=== PATIENT | female | born 1960 | race Caucasian/White ===

== ENCOUNTER 2021-08-25 05:30 | Outpatient (CLI) | payer BC ==
[~2021-08-25] VITALS: Ht 170.2 cm; Wt 81.8 kg
[2021-08-28] MEDS ORDERED: ESCI5TAB PO (09:36)
== END 2021-08-28 09:51 | disposition home or self-care (01) ==
LOC: PREOP 05:30
PROVIDERS: ATTEND Podiatrist Foot & Ankle Surgery
DX: Z01.818 Encounter for other preprocedural examination (principal)

== ENCOUNTER 2021-09-01 11:27 | Day surgery (SDC) | payer BC ==
[~2021-09-01] VITALS: Ht 170.2 cm; Wt 81.8 kg
[2021-09-01] VITALS (9 sets, daily range): BP systolic 137–161; BP diastolic 74–87
[~2021-09-01 11:27] MED LIST: ESCI5TAB PO
[2021-09-01] MEDS ORDERED: ceFAZolin INJECTION 1,000 MG ONE (11:52)
[2021-09-01] MEDS: LACTATED RINGERS 1,000 ML IV PRN ×2 (12:00→14:15)
[2021-09-01] MEDS ORDERED: ceFAZolin INJECTION 1,000 MG VIAL IV ONE (12:00)
[2021-09-01] MEDS ORDERED: BUPIVACAINE 0.5% 30 ML (SENSORCAINE) VIAL ONE (12:15)
[2021-09-01] MEDS ORDERED: LIDOCAINE 1% INJ 20 ML VIAL ONE (12:15)
--- NOTE | 2021-09-01 12:45 | Progress Note-Pre Operative ---
Pre-Operative Progress Note H&P Reviewed The H&P was reviewed, patient examined and no changes noted. Date Seen by Provider: Sep 01, 2021 Time Seen by Provider: 12:44 Date H&P Reviewed: Sep 01, 2021 Time H&P Reviewed: 12:44 Pre-Operative Diagnosis: Hallux Valgus, 2nd Hammertoe, Hypertrophic 2nd metatarsal, all right ELINOR SHELL DPM Sep 01, 2021 12:45
[2021-09-01] MEDS ORDERED: fentaNYL INJ 100 MCG/2 ML AMP ONE (12:48)
[2021-09-01] MEDS ORDERED: MIDAZOLAM 2 MG/2 ML (VERSED) VIAL ONE (12:48)
[2021-09-01] MEDS ORDERED: LIDOCAINE PF 2% 5 ML (XYLOCAINE) VIAL ONE (14:18)
[2021-09-01] MEDS ORDERED: ONDANSETRON 4 MG/2 ML (SDV) Z0FRAN ONE (14:18)
[2021-09-01] MEDS ORDERED: PROPOFOL INJECTION 50 ML IV ONE (14:18)
[2021-09-01] MEDS ORDERED: proPOfol 200 MG/20 ML (DIPRIVAN) VIAL IV ONE (14:18)
--- NOTE | 2021-09-01 14:54 | Progress Note-Post Operative ---
Post-Operative Progess Note Surgeon (s)/Locomotive Repairer Diesel (s) Surgeon ELINOR SHELL DPM Locomotive Repairer Diesel: none Pre-Operative Diagnosis Hallux Valgus, 2nd Hammertoe, Hypertrophic 2nd metatarsal, all right Post-Operative Diagnosis same Procedure & Operative Findings Date of Procedure 09/01/21 Procedure Performed/Findings Hernan bunionectomy, right 2nd metatarsal osteotomy, right Reduction of right 2nd hammertoe Anesthesia Type General Estimated Blood Loss Estimated blood loss (mL): Minimal Specimens/Packing Specimens Removed bone of right 1st metatarsal head ELINOR SHELL DPM Sep 01, 2021 14:54
[2021-09-01] MEDS ORDERED: CEPH500C PO (14:56)
[2021-09-01] MEDS ORDERED: HYDROcodone/APAP 5 MG/325 MG (LORTAB) TAB PO PRN (15:00)
[2021-09-01] MEDS ORDERED: fentaNYL INJ 100 MCG/2 ML AMP IVP ONE (15:00)
[2021-09-01] MEDS ORDERED: morphine INJ 10 MG/ML 1ML (SYR OR VIAL) IVP ONE (15:00)
[2021-09-01] MEDS ORDERED: LACTATED RINGERS 1,000 ML IV SCH (15:00)
[2021-09-01] MEDS ORDERED: ONDANSETRON 4 MG/2 ML (SDV) Z0FRAN IVP PRN (15:00)
--- NOTE | 2021-09-01 15:00 | Anesthesia-General Post-Op ---
General Patient Condition Mental Status/LOC: Same as Preop Cardiovascular: Satisfactory Nausea/Vomiting: Absent Respiratory: Satisfactory Pain: Controlled Complications: Absent Post Op Complications Complications None Follow Up Care/Instructions Patient Instructions None needed. Anesthesia/Patient Condition Patient Condition Patient is doing well, no complaints, stable vital signs, no apparent adverse anesthesia problems. No complications reported per nursing. JAMEEL LEMA CRNA Sep 01, 2021 14:59
--- NOTE | 2021-09-01 16:06 | Diagnostic Imaging Report ---
INDICATION: Postop right foot. TIME OF EXAM: 3:05 PM Two views of the right foot demonstrate a fixation pin extending through the 2nd toe. There has been an osteotomy with a cerclage wire involving the proximal phalanx of the great toe. Alignment is normal. There is a suture anchor within the distal 2nd metatarsal. No acute fracture is seen. IMPRESSION: Postop changes, as described. Dictated by: Dictated on workstation # [id number]
--- NOTE | 2021-09-01 16:09 | Physical Therapy Ortho Eval ---
PT Orthopedic Evaluation Type of Surgery Prior Level of Function Current Living Status: Spouse Locomotion (Upon Admit): Independent Established Durable Medical Eq: Crutches Subjective Subjective Patient lying supine in bed upon PT arrival, agreeable to treatment. After standing, notes, "I think she's still out of it, I can tell by the way shes talking." Motor Control Motor Control: Motor Control WNL ROM ROM: WFL, except focal deficit Strength Strength: WFL Transfer SCALE: Activities may be completed with or without assistive devices. 2-Bdqpboycnn-tqmxwly completes the activity by him/herself with no assistance from a helper. 5-Set-up or Clean-up Assistance-helper sets up or cleans up; patient completes activity. Biggs assists only prior to or following the activity. 4-Supervision or Touching Assistance-helper provides verbal cues and/or to uching/steadying and/or contact guard assistance as patient completes activity. Assistance may be provided throughout the activity or intermittently. 3-Partial/Moderate Assistance-helper does LESS THAN HALF the effort. Biggs lifts, holds or supports trunk or limbs, but provides less than half the effort. 2-Substantial/Maximal Assistance-helper does MORE THAN HALF the effort. Biggs lifts or holds trunk or limbs and provides more than half the effort. 7-Qjjcwcztu-rkqycp does ALL the effort. Patient does none of the effort to complete the activity. Or, the assistance of 2 or more helpers is required for the patient to complete the activity. If activity was not attempted, code reason: 7-Patient Refused. 9-Not Applicable-not attempted and the patient did not perform the activity before the current illness, exacerbation or injury. 10-Not Attempted due to Environmental Limitations-(lack of equipment, weather restraints, etc.). 88-Not Attempted due to Medical Conditions or Safety Concerns. Transfers (B, C, W/C) (QC): 3 Gait Gait Assistive Device: Crutches Right Lower Extremity: Right Weight Bearing Status RLE: Non Weight Bearing Left Lower Extremity: Left Weight Bearing Status LLE: Full Weight Bearing Gait (QC): 3 Distance (QC): 1=up to 49 ft Distance: 40 Gait Level of Assist: 3 Summary/Comments Up and down 1 step x 2 with crutches and mod A Treatment Rendered Treatment: Gait Train, Step Train Assessment/Goals Goal Time Frame: 1 Visit Safe Ambulation: No Patient unsteady on feet. After standing for a few seconds begins to ambulate and is unable to safely control crutches. Patient requires mod A for maintaining balance. Patient ascends/descends 1 step x 2 with mod A and crutches. Patients reports they have a [address] and feels comfortable helping his into the house with their 2 steps. Plan Treatment Plan: Discharge PT/Family Agrees to Plan: Yes Time Time In: 1547 Time Out: 1405 Total Billed Treatment Time: 18 Billed Treatment Time Visit, CHRISTY Jules PT Sep 01, 2021 16:08
--- NOTE | 2021-09-02 01:07 | OPERATIVE REPORT ---
DATE OF SERVICE: 09/01/2021 SURGEON: Alexandria Shell DPM. PREOPERATIVE DIAGNOSES: 1. Hallux abductovalgus, right. 2. Hallux rigidus, right. 3. Hypertrophic right second metatarsal. 4. Hammertoe, right second digit. POSTOPERATIVE DIAGNOSES: 1. Hallux abductovalgus, right. 2. Hallux rigidus, right. 3. Hypertrophic right second metatarsal. 4. Hammertoe, right second digit. PROCEDURES PERFORMED: 1. Modified Hernan bunionectomy, right foot. 2. Second metatarsal osteotomy, right foot. 3. Reduction of hammertoe, right second toe. WOUND CLASS: Clean. ANESTHESIA: General. HEMOSTASIS: Pneumatic thigh tourniquet at 250 mmHg. INDICATIONS: This 60-year-old female presents complaining of a painful right foot. Conservative therapy is met with unsatisfactory results and the patient is agreeable to surgical intervention after risks and complications were discussed at length. No guarantees were extended to the patient and she is willing to proceed. DESCRIPTION OF PROCEDURE: The patient was brought back to the operating table, placed in secure supine position. General anesthetic was then induced. Appropriate timeout was performed. A pneumatic thigh tourniquet was placed on the right lower extremity over several layers of padding. The right foot was anesthetized utilizing 10 mL of 1:1 mixture of 1% Xylocaine, 0.5% Marcaine injected in a Askew block as well as a local infusion to the second ray of the right foot. It was then decided after we initially started the procedure to have a more complete block due to we like to have a hospital receiving clerk sedation, so right after the procedure began additional 15 mL of 0.5% Marcaine was injected in the same location with a Askew block as well as local infusion to the second metatarsal and toe. The right foot was prepped and draped in normal sterile manner. The right foot was then elevated, allowed to exsanguinate after which the tourniquet was inflated to 250 mmHg. Attention was then directed to the dorsal aspect of the right first metatarsophalangeal joint where a 6 cm longitudinal linear incision was created. The incision was deepened in the same plane with great care to identify and retract all vital neurovascular structures. Only necessary blood vessels were cauterized as encountered. The incision was deepened down to the capsule where a longitudinal capsulotomy was performed medial to the extensor hallucis longus tendon. The capsular tissue was reflected medial laterally and some joint mice were identified dorsal aspect of the joint. These were sent for gross and microscopic evaluation. Utilizing a power sagittal saw, the dorsal, medial, and lateral eminence to the first metatarsal head was removed and sent for gross and microscopic evaluation. The dorsal, medial, and lateral eminence to the base of the proximal phalanx was also reduced with a rongeur and followed by power bur. A power bur was also utilized to create more smooth dorsal, medial, lateral aspect of the first metatarsal head. Next, joint inspection was found to have a full thickness degeneration to the dorsal lateral aspect of the right first metatarsal head approximately less than a centimeter in diameter. This area was fenestrated utilizing a 1.5 mm drill. The wound was flushed with copious amounts of normal saline. Attention was then directed to the first intermetatarsal space where a lateral release was performed. The conjoint tendon of the adductor hallucis was released as well as a lateral capsulorrhaphy. Next, attention was then directed to the proximal phalanx of the right hallux where subperiosteal dissection was carried out. Next, an Hernan type osteotomy was performed with a power sagittal saw, creating a wedge of bone, which was removed with the base medial and lateral cortices of the proximal phalanx was held intact. Once the wedge of bone was removed, the gap was closed, reducing the lateral angulation of the hallux. Next, a ems helicopter pilot hole was created to the dorsal medial aspect of the osteotomy on both the proximal and distal aspects allowing for a 28-gauge monofilament wire to pass through these ems helicopter pilot holes securing the osteotomy in a closed position. Excellent bony apposition and fixation was appreciated at this time. The wound was flushed with copious amounts of normal saline throughout the procedure and closure was then performed in layers. Deep closure was performed with 3-0 Vicryl, superficial with 4-0 Vicryl, skin closure with 4-0 Prolene in a horizontal mattress type stitch. Attention was then directed to the dorsal aspect of the right second ray where a 4 cm longitudinal linear incision was created from the surgical neck of the second metatarsal to the distal interphalangeal joint area of the toe. The incision was deepened in the same plane with great care to retract all vital neurovascular structures. Only necessary blood vessels were cauterized as encountered. The incision was deepened down to the extensor tendon overlying the proximal phalanx where a Z slide lengthening was performed. The extensor tendon was reflected proximally and the extensor knight overlying the metatarsophalangeal joint was released. Next, a dorsal capsulorrhaphy was performed to the metatarsophalangeal joint, after which the medial and lateral collateral ligaments were released. This allowed for the proximal phalanx to come down into more rectus alignment. Next, attention was then directed to the head of the second metatarsal where a Momo type osteotomy was performed. The sagittal saw was utilized to create the osteotomy in the same plane as what would be the weightbearing surface for the foot. The capital fragment was allowed to translocate proximally and was fixated in its corrected or more proximal position utilizing a 12 mm 2.0 snap-off screw driven from dorsal to plantar across the osteotomy. Excellent bony apposition and fixation was appreciated at this time. The excess bone to the dorsal aspect of the second metatarsal was reduced with a rongeur followed by a hand rasp. The wound was flushed with copious amounts of normal saline. Attention was then directed to the proximal interphalangeal joint of the second toe where medial and lateral collateral ligaments were released. The head of the proximal phalanx was fashioned into a peg with a power sagittal saw and power bur and a hole was created to the base of the middle phalanx with a power bur. Next, the digit was placed into rectus alignment after which a 0.054 K-wire was driven down the toe holding it in its corrected position. The K-wire was cut approximately 1.5 cm from the end of the toe and a protective ball placed over the wire. Excellent bony apposition was appreciated at the proximal interphalangeal joint arthrodesis site. The wound was flushed with copious amounts of normal saline throughout the procedure and closure was performed in layers. Deep closure was performed with 3-0 Vicryl, superficial with 4-0 Vicryl, skin closure with 4-0 Prolene in a horizontal mattress type stitch. Postoperative injection consisted of 10 mg of dexamethasone into the right first metatarsophalangeal joint as well as into the first intermetatarsal space. Postoperative dressing consisted of Betadine soaked Adaptic, sterile 4 x 4, sterile Kerlix all secured with a Coban wrap. The patient tolerated the anesthesia and procedure well and was transported from the operating room to the recovery room with vital signs stable and vascular status intact to all digits of the right foot. The patient is to be nonweightbearing on the right lower extremity with heel contact for balance and transfers only. We will see the patient back in the office in 10 days' period of time or sooner if needed. Job ID: [id number] DocumentID: [id number] Dictated Date: 09/01/2021 15:06:21 House Steward/Stewardess Date: 09/02/2021 01:06:46 Dictated By: ALEXANDRIA SHELL DPM
== END 2021-09-01 16:44 | disposition home or self-care (01) ==
LOC: SDC 11:27
PROVIDERS: ATTEND Podiatrist Foot & Ankle Surgery
DX: M20.11 Hallux valgus (acquired), right foot (principal); M20.21 Hallux rigidus, right foot; M20.41 Other hammer toe(s) (acquired), right foot; M89.371 Hypertrophy of bone, right ankle and foot
CPT/HCPCS: 28285; 28299; 73620; 87081; 97162; C1713

== ENCOUNTER 2022-06-26 12:56 | Emergency (ER) | payer BC ==
[~2022-06-26] VITALS: Ht 170.2 cm; Wt 81.4 kg
[~2022-06-26 12:56] MED LIST changes: +CEPH500C PO
--- NOTE | 2022-06-26 13:00 | ED Chest Pain ---
General Chief Complaint: Chest Pain Stated Complaint: CHEST PAIN History of Present Illness Date Seen by Provider: Jun 26, 2022 Time Seen by Provider: 12:59 Initial Comments 61-year-old female with no significant PMH, is here with complaints of retrost ernal chest pain which began in the morning, single episode, lasting for 15 minutes and then resolving. Patient had a similar episode about 8 weeks ago. Patient does not have any cardiac risk factors or history. She is a non-smoker. Patient states that sometimes she has heartburn, but it is not a daily occurrence. No significant family history of cardiac disease. Denies fever and chills, shortness of breath, cough, abdominal pain, palpitations. No history of thyroid dysfunction. Allergies and Home Medications Allergies Coded Allergies: No Known Drug Allergies (Unverified , 08/28/21) Patient Home Medication List Home Medication List Reviewed: Yes Cephalexin (Cephalexin) 500 Mg Capsule, 1 CAP PO TID Prescribed by: ELINOR SHELL on 09/01/21 5856 Escitalopram Oxalate (Lexapro) 5 Mg Tablet, 5 MG PO DAILY, (Reported) Entered as Reported by: KHADIJAH JONES on 08/28/21 0936 Review of Systems Review of Systems Constitutional: no symptoms reported EENTM: No Symptoms Reported Respiratory: No Symptoms Reported Cardiovascular: Chest Pain Gastrointestinal: No Symptoms Reported Genitourinary: No Symptoms Reported Musculoskeletal: no symptoms reported Skin: no symptoms reported Psychiatric/Neurological: No Symptoms Reported Endocrine: No Symptoms Reported Hematologic/Lymphatic: No Symptoms Reported Past Gtabtnv-Cokekh-Ldlbku Hx Immunizations Up To Date First/Initial COVID19 Vaccinat: 11/2020 Second COVID19 Vaccination Soham: 12/2020 Seasonal Allergies Seasonal Allergies: Yes Past Medical History Surgeries: Yes (RIGHT CTR) Appendectomy, Hysterectomy, Tonsillectomy Respiratory: No Cardiac: No Neurological: No Female Reproductive Disorders: Endometriosis, 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 oz. kg; 28.23 BMI Method: General Appearance: No Apparent Distress, WD/WN HEENT: PERRL/EOMI Neck: Full Range of Motion Respiratory: Chest Non Tender, Lungs Clear, Normal Breath Sounds Cardiovascular: Regular Rate, Rhythm, No Edema, No Murmur Gastrointestinal: Non Tender, Soft Extremity: Normal Range of Motion Neurologic/Psychiatric: Alert, Oriented x3, No Motor/Sensory Deficits Skin: Normal Color Progress/Results/Core Measures Results/Orders Lab Results Laboratory Tests Test 06/26/22 12:56 06/26/22 13:09 Range/Units Urine Color YELLOW Urine Clarity CLEAR Urine pH 5.5 5-9 Urine Specific [place] 1.010 L 1.016-1.022 Urine Protein NEGATIVE NEGATIVE Urine Glucose (UA) NEGATIVE NEGATIVE Urine Ketones NEGATIVE NEGATIVE Urine Nitrite NEGATIVE NEGATIVE Urine Bilirubin NEGATIVE NEGATIVE Urine Urobilinogen 0.2 < = 1.0 MG/DL Urine Leukocyte Esterase NEGATIVE NEGATIVE Urine RBC (Auto) NEGATIVE NEGATIVE Urine RBC NONE /HPF Urine WBC 0-2 /HPF Urine Squamous Epithelial Cells 0-2 /HPF Urine Crystals NONE /LPF Urine Bacteria TRACE /HPF Urine Casts NONE /LPF Urine Mucus NEGATIVE /LPF Urine Culture Indicated NO Urine Opiates Screen NEGATIVE NEGATIVE Urine Oxycodone Screen NEGATIVE NEGATIVE Urine Methadone Screen NEGATIVE NEGATIVE Urine Propoxyphene Screen NEGATIVE NEGATIVE Urine Barbiturates Screen NEGATIVE NEGATIVE Ur Tricyclic Antidepressants Screen NEGATIVE NEGATIVE Urine Phencyclidine Screen NEGATIVE NEGATIVE Urine Amphetamines Screen NEGATIVE NEGATIVE Urine Methamphetamines Screen NEGATIVE NEGATIVE Urine Benzodiazepines Screen NEGATIVE NEGATIVE Urine Cocaine Screen NEGATIVE NEGATIVE Urine Cannabinoids Screen NEGATIVE NEGATIVE White Blood Count 6.6 4.3-11.0 10^3/uL Red Blood Count 4.61 3.80-5.11 10^6/uL Hemoglobin 14.1 11.5-16.0 g/dL Hematocrit 42 35-52 % Mean Corpuscular Volume 91 80-99 fL Mean Corpuscular Hemoglobin 31 25-34 pg Mean Corpuscular Hemoglobin Concent 34 32-36 g/dL Red Cell Distribution Width 13.2 10.0-14.5 % Platelet Count 281 130-400 10^3/uL Mean Platelet Volume 9.0 9.0-12.2 fL Immature Granulocyte % (Auto) 0 % Neutrophils (%) (Auto) 67 42-75 % Lymphocytes (%) (Auto) 23 12-44 % Monocytes (%) (Auto) 7 0-12 % Eosinophils (%) (Auto) 2 0-10 % Basophils (%) (Auto) 1 0-10 % Neutrophils # (Auto) 4.4 1.8-7.8 10^3/uL Lymphocytes # (Auto) 1.5 1.0-4.0 10^3/uL Monocytes # (Auto) 0.5 0.0-1.0 10^3/uL Eosinophils # (Auto) 0.1 0.0-0.3 10^3/uL Basophils # (Auto) 0.0 0.0-0.1 10^3/uL Immature Granulocyte # (Auto) 0.0 0.0-0.1 10^3/uL Prothrombin Time 13.0 12.2-14.7 SEC INR Comment 0.9 0.8-1.4 Activated Partial Thromboplast Time 32 24-35 SEC Sodium Level 141 135-145 MMOL/L Potassium Level 4.2 3.6-5.0 MMOL/L Chloride Level 104 98-107 MMOL/L Carbon Dioxide Level 26 21-32 MMOL/L Anion Gap 11 5-14 MMOL/L Blood Urea Nitrogen 16 7-18 MG/DL Creatinine 0.75 0.60-1.30 MG/DL Estimat Glomerular Filtration Rate 91 BUN/Creatinine Ratio 21 Glucose Level 103 70-105 MG/DL Calcium Level 9.4 8.5-10.1 MG/DL Corrected Calcium 9.2 8.5-10.1 MG/DL Magnesium Level 2.1 1.6-2.4 MG/DL Total Bilirubin 0.3 0.1-1.0 MG/DL Aspartate Amino Transf (AST/SGOT) 19 5-34 U/L Alanine Aminotransferase (ALT/SGPT) 16 0-55 U/L Alkaline Phosphatase 128 40-136 U/L Troponin I < 0.30 <0.30 NG/ML Total Protein 7.2 6.4-8.2 GM/DL Albumin 4.2 3.2-4.5 GM/DL My Orders Orders - CASSI ISLAS MD Continuous Ekg Monitoring (06/26/22 13:00) Ekg Tracing (06/26/22 13:00) Cbc With Automated Diff (06/26/22 13:13) Magnesium (06/26/22 13:13) Chest 1 View Ap/Pa Only (06/26/22 13:13) Comprehensive Metabolic Panel (06/26/22 13:13) Protime With Inr (06/26/22 13:13) Partial Thromboplastin Time (06/26/22 13:13) Aspirin Chewable Tablet (Baby Aspirin Ch (06/26/22 13:15) Ed Iv/Invasive Line Start (06/26/22 13:13) Troponin I Fs (06/26/22 13:13) Drug Screen Stat (Urine) (06/26/22 13:14) Ua Culture If Indicated (06/26/22 13:14) Famotidine Injection (Pepcid Injection) (06/26/22 13:14) Medications Given in ED Current Medications Medications Dose Ordered Sig/Rory Route Start Time Stop Time Status Last Admin Dose Admin Aspirin 324 mg ONCE ONCE PO 06/26/22 13:15 06/26/22 13:16 DC 06/26/22 13:19 324 MG Progress Progress Note : Progress Note 1. ACS RULE OUT: ACUTE GERD: - CXR: No acute findings - CBC/ CMP: normal - UA/ UDS: negative - Troponin and EKG: non-ischemic - ASA 324mg STAT - Pepcid 20mg iv STAT - Advised Pepcid and Maalox for indigestion / acid-reflux - Follow up with PCP within 3 to 5 days, may benefit from out-patient stress testing -The patient was seen in the ED, and treated appropriately to presentation at a specific point in time. Patient is informed that there is a possibility that disease and illness can evolve and change in acuity rapidly or slowly after patient is discharged from the ER. Precautionary advice given to the patient for immediate return to ER if symptoms worsen or do not resolve, and to seek emergency care sooner rather than later. Pt also advised on the importance of PCP follow up and compliance with management and follow up plan with PCP and/or specialist, as this is part of the management plan. Pt verbally expressed understanding. Diagnostic Imaging Diagonstic Imaging: Xray Plain Films/CT/US/NM/MRI: chest Comments [facility]. [place], [place] NAME: CARLINE [facility]IEE [facility] REC#: [id number] PT STATUS: REG ER : 1960 PHYSICIAN: CASSI ISLAS MD ADMIT DATE: 06/26/22/ER FS Draft Date of Exam:06/26/22 CHEST 1 VIEW AP/PA ONLY EXAMINATION: Chest radiograph, portable AP view. DATE: 06/26/2022 1:21 PM. INDICATION: 61-year-old female, chest pain. COMPARISON: None. FINDINGS: Heart size and mediastinal contours are unremarkable. There is no identified pneumothorax. There is no large pleural effusion. There is no identified focal airspace consolidation. IMPRESSION: No identified acute cardiopulmonary abnormality. Dictated on workstation # [id number] Dict: 06/26/22 1333 Trans: 06/26/22 1336 [id number] Interpreted by: JIMMY MUÑIZ MD Electronically signed by: Departure Impression Primary Impression: GERD (gastroesophageal reflux disease) Qualified Codes: K21.9 - Gastro-esophageal reflux disease without esophagitis Additional Impression: Ruled out for myocardial infarction Disposition: HOME, SELF-CARE Condition: Stable Departure-Patient Inst. Referrals: KIMBERLY MORLEY APRN (PCP) Primary Care Physician [facility] (Family) Primary Care Physician Patient Instructions: Acid Reflux and Gastroesophageal Reflux Disease in Adults Add. Discharge Instructions: - Advised Pepcid and Maalox for indigestion / acid-reflux - Follow up with PCP within 3 to 5 days, may benefit from out-patient stress testing All discharge instructions reviewed with patient and/or family. Voiced understanding. CASSI ISLAS MD Jun 26, 2022 13:00
[2022-06-26] MEDS ORDERED: FAMOTIDINE 20MG/2ML IV (PEPCID) IV STA (13:14)
[2022-06-26] MEDS ORDERED: ASPIRIN 81 MG CHEW (CHILDREN'S ASA) PO ONE (13:15)
[2022-06-26 13:22] LABS: BILIRUBIN,URINE NEGATIVE (NEGATIVE); CLARITY,URINE CLEAR; COLOR,URINE YELLOW; GLUCOSE, URINE (UA) NEGATIVE (NEGATIVE); KETONES,URINE NEGATIVE (NEGATIVE); LEUKOCYTE ESTERASE ,URINE NEGATIVE (NEGATIVE); NITRITE,URINE NEGATIVE (NEGATIVE); PH,URINE 5.5 (5-9); PROTEIN,URINE NEGATIVE (NEGATIVE)
[2022-06-26 13:28] LABS: BASOPHILS % (AUTO) 1 % (0-10); EOSINOPHILS # (AUTO) 0.1 10^3/uL (0.0-0.3); EOSINOPHILS % (AUTO) 2 % (0-10); HEMATOCRIT 42 % (35-52); HEMOGLOBIN 14.1 g/dL (11.5-16.0); LYMPHOCYTES # (AUTO) 1.5 10^3/uL (1.0-4.0); LYMPHOCYTES % (AUTO) 23 % (12-44); MEAN CORPUSCULAR HEMOGLOBIN 31 pg (25-34); MEAN CORPUSCULAR HGB CONC 34 g/dL (32-36); MEAN CORPUSCULAR VOLUME 91 fL (80-99); MONOCYTES # (AUTO) 0.5 10^3/uL (0.0-1.0); MONOCYTES % (AUTO) 7 % (0-12); NEUTROPHILS # (AUTO) 4.4 10^3/uL (1.8-7.8); NEUTROPHILS % (AUTO) 67 % (42-75); PLATELET COUNT 281 10^3/uL (130-400); WHITE BLOOD COUNT 6.6 10^3/uL (4.3-11.0)
--- NOTE | 2022-06-26 13:36 | Diagnostic Imaging Report ---
EXAMINATION: Chest radiograph, portable AP view. DATE: 06/26/2022 1:21 PM. INDICATION: 61-year-old female, chest pain. COMPARISON: None. FINDINGS: Heart size and mediastinal contours are unremarkable. There is no identified pneumothorax. There is no large pleural effusion. There is no identified focal airspace consolidation. IMPRESSION: No identified acute cardiopulmonary abnormality. Dictated by: Dictated on workstation # [id number]
[2022-06-26 13:39] LABS: BACTERIA,URINE TRACE /HPF; SQUAMOUS EPITHELIAL CELL,UR 0-2 /HPF; WBC,URINE 0-2 /HPF
[2022-06-26 13:41] LABS: INR 0.9 (0.8-1.4)
[2022-06-26 13:48] LABS: CREATININE SERUM 0.75 MG/DL (0.60-1.30); POTASSIUM 4.2 MMOL/L (3.6-5.0)
[2022-06-26 13:49] LABS: ALBUMIN 4.2 GM/DL (3.2-4.5); BILIRUBIN,TOTAL 0.3 MG/DL (0.1-1.0); CALCIUM 9.4 MG/DL (8.5-10.1); MAGNESIUM 2.1 MG/DL (1.6-2.4); TOTAL PROTEIN 7.2 GM/DL (6.4-8.2)
[2022-06-26 13:55] LABS: AMPHETAMINE SCREEN, URINE NEGATIVE (NEGATIVE); BARBITURATE SCREEN URINE NEGATIVE (NEGATIVE); BENZODIAZEPINES SCREEN URINE NEGATIVE (NEGATIVE); CANNABINOID SCREEN, URINE NEGATIVE (NEGATIVE); COCAINE SCREEN URINE NEGATIVE (NEGATIVE); METHADONE STAT NEGATIVE (NEGATIVE); OPIATE SCREEN URINE NEGATIVE (NEGATIVE); OXYCODONE STAT NEGATIVE (NEGATIVE); PROPOXYPHENE STAT NEGATIVE (NEGATIVE); TRICYCLIC ANTIDEPRESSANTS SCRE NEGATIVE (NEGATIVE)
[2022-06-26 14:34] VITALS: BP 143/79
== END 2022-06-26 14:34 | disposition home or self-care (01) ==
LOC: EDUNIT# 12:56 → ER FS 12:57
DX: K21.9 Gastro-esophageal reflux disease without esophagitis (principal)
CPT/HCPCS: 36415; 71045; 80053; 80306; 81000; 83735; 84484; 85025; 85610; 85730; 93005